=== PATIENT | female | born 1995 | race Caucasian/White ===

== ENCOUNTER 2021-09-22 10:02 | Outpatient (CLI) | payer BC, SELFPAY ==
[2021-09-22 10:25] VITALS: BP 108/60; PULSE 77
[2021-09-22 10:27] VITALS: BP 108/60; PULSE 77; RESP 16; TEMP 37.2; O2SAT 98
[2021-09-22 10:42] LABS: Bilirubin Urine Negative (Negative); Blood Urine Negative (Negative); Color Urine Yellow (Yellow); Glucose Urine Negative (Negative); Ketones Urine Negative (Negative); Leukocyte Esterase Urine Negative (Negative); Nitrite Urine Negative (Negative); Protein Urine Negative (Negative); Specific Gravity Urine 1.025 (1.000-1.030); Urobilinogen Urine 0.2 (0.2-1.0)
[2021-09-22 11:04] LABS: Appearance Urine Clear (Clear)
[2021-09-22] MEDS: LACTATED RINGERS 1000 ML 1,000 ML IV (11:13)
[2021-09-22 11:23] LABS: Clue Cells No Clue Cells Seen (None Seen); Trichomonas No Trichomonas Seen (None Seen); Yeast No Yeast Seen (None Seen)
--- NOTE | 2021-09-22 13:17 | PC.OBNST ---
The provider's electronic signature indicates the NST is reactive/appropriate for gestational age. *Note to provider: If an addendum is required, open the patient's chart and click on the note under the Nurse/Allied Health tab. Difficult to obtain a reactive and full NST tracing due to gestational age. Audible FHR heard in the high 140's and lower 150's. RN listened for 5 minutes with no audible decelerations heard. RN obtained order for a fluid bolus, wet prep & urinalyses. MD came to bedside for a vaginal speculum exam and ordered a vaginal DNA swab for BV or Vaginal yeast infection. Test was sent out for results.
[2021-10-17 21:05] LABS: Trich vaginalis DNA Probe NEGATIVE
== END 2021-09-22 13:15 | disposition home or self-care (01) ==
LOC: OB OUT 10:05 → OB 12:54
PROVIDERS: PCP Family Medicine; Visit Provider Family Medicine
DX: O47.02 False labor before 37 completed weeks of gestation, second trimester (principal); Z3A.21 21 weeks gestation of pregnancy; Z11.3 Encounter for screening for infections with a predominantly sexual mode of transmission
CPT/HCPCS: 59025; 81003; 87210; 87480; 87510; 87660; 99213; J7120

== ENCOUNTER 2021-11-26 11:20 | Outpatient (CLI) | payer BC, SELFPAY ==
[2021-11-26 12:07] VITALS: BP 117/69; PULSE 81
[2021-11-26 12:08] VITALS: RESP 16; TEMP 36.6
[2021-11-26 12:33] LABS: Appearance Urine Clear (Clear); Bilirubin Urine Negative (Negative); Blood Urine Negative (Negative); Color Urine Yellow (Yellow); Glucose Urine Negative (Negative); Ketones Urine Negative (Negative); Leukocyte Esterase Urine Negative (Negative); Nitrite Urine Negative (Negative); Protein Urine Negative (Negative); Specific Gravity Urine 1.015 (1.000-1.030); Urobilinogen Urine 0.2 (0.2-1.0); pH Urine 7.5 (5.0-8.5)
[2021-11-26 13:03] LABS: Clue Cells No Clue Cells Seen (None Seen); Trichomonas No Trichomonas Seen (None Seen); Yeast Yeast Seen (None Seen)
[2021-11-26 13:07] LABS: Amnisure Rom* Negative
[2021-11-26 13:24] LABS: Fetal Fibronectin* Negative (Negative)
--- NOTE | 2021-11-26 14:38 | PC.OBNST ---
NST Note NST Note Start: 11/26/21 11:57 Freq: ONCE Status: Active Protocol: Document 11/26/21 13:15 WK (Rec: 11/26/21 14:38 WK [id number]) NST Note 4 Para (# of births) 2 EDC 01/29/22 Gestational Age In Weeks & Days 30 Weeks & 6 Days Patient Presented with Complaint(s) of Contractions/cramping,Pain If Pain, describe location c/o pain on L side of uterus. Other Complaints Also c/o vaginal pressure. Appropriate for Gestational Age Yes RN Alberto RNC Date 11/26/21 Appropriate for Gestational Age Yes RN Bang RN Date 11/26/21 OB NST charge Yes Complete NST Note via Write Note Yes The provider's electronic signature indicates the NST is reactive/appropriate for gestational age. *Note to provider: If an addendum is required, open the patient's chart and click on the note under the Nurse/Allied Health tab.
== END 2021-11-26 13:35 | disposition home or self-care (01) ==
LOC: OB OUT 11:24 → OB 11:25
PROVIDERS: PCP Family Medicine; Visit Provider Family Medicine
DX: O47.03 False labor before 37 completed weeks of gestation, third trimester (principal); Z3A.30 30 weeks gestation of pregnancy
CPT/HCPCS: 59025; 81003; 84112; 87210; 99213

== ENCOUNTER 2021-12-29 14:20 | Outpatient (CLI) | payer BC, SELFPAY ==
[2021-12-29 14:56] VITALS: BP 129/66; PULSE 88; RESP 16; TEMP 36.9
[2021-12-29 15:10] LABS: Amnisure Rom* Negative
[2021-12-29 15:25] VITALS: PULSE 88; O2SAT 96
[2021-12-29 15:39] LABS: Appearance Urine Clear (Clear); Bilirubin Urine Negative (Negative); Blood Urine Negative (Negative); Color Urine Yellow (Yellow); Glucose Urine Negative (Negative); Ketones Urine Negative (Negative); Leukocyte Esterase Urine Negative (Negative); Nitrite Urine Negative (Negative); Protein Urine Negative (Negative); Urobilinogen Urine 0.2 (0.2-1.0)
--- NOTE | 2021-12-30 14:22 | PC.OBNST ---
NST Note NST Note Start: 12/29/21 1425 Freq: ONCE Status: Active Protocol: Document 12/29/21 16:10 CUDDYH (Rec: 12/30/21 13:49 CUDDY [id number]) NST Note 4 Para (# of births) 2 EDC 01/29/22 Gestational Age In Weeks & Days 35 Weeks & 5 Days Patient Presented with Complaint(s) of Leaking fluid Other Complaints Pt arrived to unit ambulatory from home with complaints of questionable rupture of membranes. Reactive Yes Appropriate for Gestational Age Yes LINDSEY Juarez RN Date 12/29/21 Reactive Yes Appropriate for Gestational Age Yes LINDSEY Mercedes RNC Date 12/29/21 OB NST charge Yes Complete NST Note via Write Note Yes The provider's electronic signature indicates the NST is reactive/appropriate for gestational age. *Note to provider: If an addendum is required, open the patient's chart and click on the note under the Nurse/Allied Health tab.
== END 2021-12-29 16:10 | disposition home or self-care (01) ==
LOC: OB OUT 14:21 → OB 14:24
PROVIDERS: PCP Family Medicine; Visit Provider Family Medicine
DX: O47.03 False labor before 37 completed weeks of gestation, third trimester (principal); Z3A.35 35 weeks gestation of pregnancy
CPT/HCPCS: 59025; 81003; 84112; 99213

== ENCOUNTER 2022-02-01 16:35 | Inpatient (IN) | payer BC, SELFPAY ==
[2022-02-01 17:09] VITALS: BP 128/73; PULSE 90
[2022-02-01 17:14] VITALS: PULSE 90; O2SAT 97
[2022-02-01 17:40] VITALS: BMI 33.7
[2022-02-01] MEDS: miSOPROStoL 25 MCG/0.25 TABLET PO ×2 (18:04→20:57)
[2022-02-01 18:17] LABS: SARS PCR* Negative SARS-CoV-2 (Negative)
[2022-02-01 18:44] LABS: Basophils Percent Auto 0.2 % (0.0-3.0); Eosinophils Percent Auto 0.8 % (0.0-7.0); Hematocrit 37.7 % (33.0-51.0); Hemoglobin* 12.9 gm/dL (12.0-16.0); Immature Granulocytes Pct Auto 0.2 %; Lymphocytes Percent Auto 17.9 % (20-44); Mean Corpuscular HGB Conc 34 gm/dL (32-36); Mean Corpuscular Hemoglobin 33 pg (26-34); Mean Corpuscular Volume 95 fL (80-100); Neutrophils Percent Auto 69.9 % (42.0-72.0); Platelet Count* 354 K/uL (140-440); Red Blood Count 3.96 m/uL (4.00-5.20); White Blood Count* 12.04 K/uL (4.50-11.00)
[2022-02-01 18:52] LABS: Slide Review Reflex No
[2022-02-01 21:17] VITALS: BP 122/66; PULSE 70
[2022-02-01 21:19] VITALS: RESP 16; TEMP 36.8
[2022-02-02] VITALS (53 sets, daily range): BP systolic 107–166; BP diastolic 51–76; PULSE 58–162; RESP 16–18; TEMP 36.2–36.9; O2SAT 96–99
[2022-02-02] MEDS: miSOPROStoL 25 MCG/0.25 TABLET PO ×2 (00:05→03:06)
[2022-02-02] MEDS: LACTATED RINGERS 1000 ML 1,000 ML 1200 ML IV (03:54)
--- NOTE | 2022-02-02 05:28 | P.ANBPRC_ITS ---
[facility] Social History Smoking Status: Current every day smoker Meds Home Medications and Allergies Home Medications Medication Instructions Recorded Confirmed Type vit 60-olqv-jzwla-dha 1 tab PO DAILY 11/26/21 02/01/22 History Allergies Allergy/AdvReac Type Severity Reaction Status Date / Time No Known Drug Allergies Allergy Verified 02/01/22 21:30 Results Labs Labs: Laboratory Results - last 24 hr 02/01/22 02/01/22 02/01/22 16:44 18:35 18:35 WBC 12.04 H RBC 3.96 L Hgb 12.9 Hct 37.7 MCV 95 MCH 33 MCHC 34 RDW Coeff of Suman 13.0 Plt Count 354 Neut % (Auto) 69.9 Lymph % (Auto) 17.9 L Anderson % (Auto) 11.0 Eos % (Auto) 0.8 Baso % (Auto) 0.2 Neut # (Auto) 8.40 H Lymph # (Auto) 2.20 Anderson # (Auto) 1.30 H Eos # (Auto) 0.10 Baso # (Auto) 0.00 SARS-CoV-2 (PCR) Negative SARS-CoV-2 Blood Type A Positive Antibody Screen NEGATIVE Vital Signs Vital Signs: Last Vital Signs Temp 98 F 02/02/22 03:05 Pulse 67 02/02/22 03:05 Resp 16 02/02/22 03:05 BP 114/64 02/02/22 03:05 Pulse Ox 97 02/02/22 03:50 Weight: 89.103 kg Height: 162.56 cm Anesthesia Procedures Epidural Insertion Patient Location: OB Start Time: 04:30 Stop Time: 05:30 Start Date: 02/02/22 Stop Date: 02/02/22 Reason for Block: procedure for pain Patient Position: sitting Performed By: Adam Jose Preanesthetic Checklist: IV checked, risks and benefits discussed, surgical consent, monitors and equipment checked, pre-op evaluation, timeout performed and anesthesia consent Prep: chlorhexidine gluconate Monitoring: blood pressure monitoring, continuous pulse oximetry and heart rate Approach: midline Vertebral Space: lumbar (1-5) Epidural Technique: WAYNE saline Needle Type: Tuohy needle Injection Technique: continuous catheter Needle gauge: 17 Needle Length (cm): 10 cm Needle Insertion Depth (cm): 9 Catheter Gauge: 19 Catheter Type: multi-orifice Catheter at skin depth (cm): 13 Test Dose Result: negative and lidocaine 1.5% with epinephrine 1 to 200,000
--- NOTE | 2022-02-02 06:22 | P.OBHP_ITS ---
OB - H&P: HPI Labor/Induction History of Present Illness Time Seen by Provider: 06: Date Seen: 02/02/22 Chief Complaint: The patient is a 26 year old 4 para 2011 at 40+4 weeks gestation by first trimester US, who presents for IOL for mild polyhydramnios and post-dates. Chief complaint: Maternity Narrative: Maday Sheppard is a 26 year old female 4 para 2011 at 40+4 weeks gestation by first trimester US, who presents for IOL for mild polyhydramnios and post-dates. Her has been complicated by tobacco dependence, short- interpregnancy interval, mild polyhydramnios. She had a level II ultrasound 09/29/21 with MPP and negative quad screen. Mild polyhydramnios on 34 week US; discussed with perinatology and no change in management recommended. EFW 40th percentile on 12/22/2021. GBS negative. I was called in to assess the patient following several decelerations. First was around 345, lasting 5 minutes. Several subsequent between 5 and 530. Following decelerations, returns to baseline with moderate variability. She is s/p doses of oral cytotec. Labs Blood type: A (+) positive Rubella: immune RPR/VDLR: nonreactive GBS status: negative HBsAG: negative Review of Systems Status of ROS: Reports: 10 or more systems reviewed and unremarkable except as noted in History and below Meds Home Medications and Allergies Home Medications Medication Instructions Recorded Confirmed Type vit 17-guco-gffco-dha 1 tab PO DAILY 11/26/21 02/01/22 History Allergies Allergy/AdvReac Type Severity Reaction Status Date / Time No Known Drug Allergies Allergy Verified 02/01/22 21:30 OB - H&P: Exam Physical Exam: Vital signs: Temp Pulse Resp BP Pulse Ox 98 F 61 16 113/58 L 96 02/02/22 05:40 02/02/22 05:32 02/02/22 05:40 02/02/22 05:32 02/02/22 06:19 Narrative: General appearance: Well-appearing adult female. Resting in bed. No acute distress. HEENT: Normocephalic, atraumatic. Mucous membranes moist. Neck: Supple. Cardiovascular: Regular rate and rhythm, no rubs, murmurs or extra heart sounds. Pulmonary: Clear to auscultation bilaterally. No wheezes, rales or rhonchi. Abdomen: Gravid. Soft, nontender Extremities: Warm and well perfused. No lower extremity edema. Skin: Warm and dry. No rashes appreciated Neuro: Cranial nerves 2-12 grossly intact. Grossly intact strength and sensation. No focal deficits. Psychiatric: Normal affect. Cervix: Per nursing 4-5 cm/50%/-3 FHT: 125 BPM, moderate variability, multiple prolonged decelerations OB - Results Labs Labs: Short CBC 02/01/22 Range/Units 18:35 WBC 12.04 H (4.50-11.00) K/uL Hgb 12.9 (12.0-16.0) gm/dL Hct 37.7 (33.0-51.0) % Plt Count 354 (140-440) K/uL OB - Problem Based A/P Additional Plan (1) Term : Status: Acute (2) Polyhydramnios: Status: Acute (3) Tobacco dependence: Status: Acute Plan - Currently status reassuring. Continue to monitor for additional decelerations - Start pitocin at 0715 - Epidural at request - Anticipate vaginal delivery
[2022-02-02] MEDS: OXYTOCIN 30 unit/500 ML in NS 30 UNIT/500 ML BAG IVPB (07:11)
[2022-02-02] MEDS: LACTATED RINGERS 1000 ML 1,000 ML 125 ML IV (07:26)
[2022-02-02] MEDS: fentaNYL 100 MCG/2 ML inj 25 MCG INTRATHECA (08:45)
--- NOTE | 2022-02-02 08:57 | PM.ANBPRC ---
[facility] Social History Smoking Status: Current every day smoker Meds Home Medications and Allergies Home Medications Medication Instructions Recorded Confirmed Type vit 05-helj-jyfyw-dha 1 tab PO DAILY 11/26/21 02/01/22 History Allergies Allergy/AdvReac Type Severity Reaction Status Date / Time No Known Drug Allergies Allergy Verified 02/01/22 21:30 Results Labs Labs: Laboratory Results - last 24 hr 02/01/22 02/01/22 02/01/22 16:44 18:35 18:35 WBC 12.04 H RBC 3.96 L Hgb 12.9 Hct 37.7 MCV 95 MCH 33 MCHC 34 RDW Coeff of Suman 13.0 Plt Count 354 Neut % (Auto) 69.9 Lymph % (Auto) 17.9 L Thayer % (Auto) 11.0 Eos % (Auto) 0.8 Baso % (Auto) 0.2 Neut # (Auto) 8.40 H Lymph # (Auto) 2.20 Thayer # (Auto) 1.30 H Eos # (Auto) 0.10 Baso # (Auto) 0.00 SARS-CoV-2 (PCR) Negative SARS-CoV-2 Blood Type A Positive Antibody Screen NEGATIVE Vital Signs Vital Signs: Last Vital Signs Temp 98.5 F 02/02/22 07:13 Pulse 97 02/02/22 08:55 Resp 16 02/02/22 07:13 BP 121/64 02/02/22 08:55 Pulse Ox 97 02/02/22 08:56 Weight: 89.103 kg Height: 162.56 cm Anesthesia Procedures Intrathecal Patient Location: OB Start Time: 08:40 Stop Time: 08:58 Start Date: 02/02/22 Stop Date: 02/02/22 Reason for Block: primary anesthetic Patient Position: sitting Performed By: Luis Carlos Tavera Preanesthetic Checklist: IV checked, risks and benefits discussed and anesthesia consent Prep: chlorhexidine gluconate Monitoring: blood pressure monitoring and continuous pulse oximetry Approach: midline Vertebral Space: lumbar (1-5) Needle Type: Sprotte Injection Technique: single-shot Needle gauge: 24 Needle Length (cm): 10 cm Events: cerebrospinal fluid
[2022-02-02] MEDS: OXYTOCIN 30 unit/500 ML in NS 30 UNIT/500 ML BAG 300 UNIT IVPB (09:09)
--- NOTE | 2022-02-02 09:13 | SUR.ANES ---
meds for ITN were 0.8 ml 0.75% Marcaine and 20 mcg Fentanyl. aryan BUTLER
[2022-02-02 09:17] LABS: HIV 1/2/P24 Combo Screen* Negative (Negative)
--- NOTE | 2022-02-02 09:24 | PM.OBPRCVD ---
Procedure Delivery date: 02/02/22 Procedure Done: Global Narrative: The patient is a 26 year-old admitted on 02/01/22/ at 40 Weeks, 3 Days gestation for IOL for mild polyhydramnios.? Cervical exam on admission was 3.5 cm/50 % effaced/-3 station with membranes intact in vertex presentation.? Contractions were q2-3 mins.? heart rate demonstrated baseline 125 bpm with moderate variability, + accelerations, - decelerations; a category 1 tracing.?She received oral cytotec x 4 doses. Several prolonged decelerations occurred in the early AM on 02/02 with subsequent return to baseline with good variability. Pitocin was stared 0715. AROM occurred at 0900 with clear fluid. ? Labor Analgesia:? ITN ? Pitocin:? Yes ? Labor onset:? 0344 ? Complete:? 903 ? Pushing:? 0907 ? heart tones during second stage were category II with early decelerations. ? At 0908 a viable male delivered in vertex OA presentation over intact via spontaneous vaginal delivery.? was placed on maternal abdomen.? Cord was clamped and cut after a 30-60 second delay.? Nose and mouth were bulb suctioned.? weight pending.? 8 at 1 minute and 9 at 5 minutes.? Shoulder dystocia: no.? Nuchal cord: yes, reduced. ? Placenta delivered spontaneously and complete at 0912 with a 3 vessel cord. ? Mother and were stable after delivery. ? Lacerations:? first degree periurethral, not repaired. ? Blood loss: 350 mL. Blood loss measurement type: QBL ? Sponge and needles counts are correct.
[2022-02-02] MEDS: IBUPROFEN 600 MG TABLET PO ×2 (16:39→22:47)
[2022-02-02] MEDS: ACETAMINOPHEN 500 MG TABLET 1000 MG PO (22:47)
[2022-02-03 04:00] VITALS: BP 120/77; PULSE 77; RESP 18; TEMP 36.6; O2SAT 96
[2022-02-03] MEDS: IBUPROFEN 600 MG TABLET PO (04:50)
[2022-02-03] MEDS: DOCUSATE SODIUM 100 MG CAPSULE PO ×2 (09:03)
[2022-02-03] MEDS: ACETAMINOPHEN 500 MG TABLET 1000 MG PO (09:03)
[2022-02-03 09:30] VITALS: BP 126/77; PULSE 78; RESP 18; TEMP 36.6; O2SAT 96
--- NOTE | 2022-02-03 10:07 | P.DS_ITS ---
DS: Providers Provider Time Seen by Provider: 10:07 Date Seen: 02/03/22 Date of admission: 02/01/22 16:35 Primary care physician: Alfreda Avila MD Admitting Clinician: Alfreda Aivla MD Attending Physician on discharge: Alfreda Avila MD Date of Discharge: 02/03/22 DS: Diagnosis Discharge Diagnosis (1) Term : Status: Acute (2) Polyhydramnios: Status: Acute (3) Tobacco dependence: Status: Acute (4) (normal spontaneous vaginal delivery): Status: Acute Exam Narrative: Exam Narrative: General appearance: Well-appearing adult female. Sitting up in bed. No acute distress. HEENT: EOMI, no conjunctival injection. No nasal discharge. Mucous membranes moist. Neck: Supple. Cardiovascular: Regular rate and rhythm, no rubs, murmurs or extra heart sounds. Pulmonary: Clear to auscultation bilaterally. No wheezes, rales or rhonchi. Abdomen: Soft, nontender, nondistended. Fundus at the level the umbilicus, firm. Extremities: Warm and well perfused. No lower extremity edema. Skin: Warm and dry. No rashes are appreciated on exposed skin. Neuro: Cranial nerves 2-12 grossly intact. Strength and sensation grossly intact. No focal deficits. Psych: Appropriate affect. Const: Vital Signs, click to edit/add: Vital Signs - 24 hr 02/02/22 10:14 02/02/22 10:28 02/02/22 10:43 Temperature Pulse Rate 67 60 59 L Pulse Rate [Blood Pressure Cuff] Respiratory Rate Blood Pressure 125/56 L 116/59 L 114/58 L Blood Pressure [Ri ght Arm] Pulse Oximetry Oxygen Delivery Fl thod 02/02/22 10:58 02/02/22 10:43 02/02/22 10:14 Temperature Pulse Rate 61 Pulse Rate [Blood Pressure Cuff] 78 67 Respiratory Rate Blood Pressure 107/55 L Blood Pressure [Ri ght Arm] 117/54 L 125/56 L Pulse Oximetry Oxygen Delivery Fl thod 02/02/22 10:28 02/02/22 10:43 02/02/22 10:58 Temperature Pulse Rate Pulse Rate [Blood Pressure Cuff] 60 59 L 61 Respiratory Rate Blood Pressure Blood Pressure [Ri ght Arm] 116/59 L 114/58 L 107/55 L Pulse Oximetry Oxygen Delivery Me thod 02/02/22 12:19 02/02/22 16:31 02/02/22 16:39 Temperature 97.4 F L 97.6 F 97.6 F Pulse Rate Pulse Rate [Blood Pressure Cuff] 81 74 Respiratory Rate 16 16 Blood Pressure Blood Pressure [Ri ght Arm] 115/74 123/73 Pulse Oximetry 96 Oxygen Delivery Me thod Room Air 02/02/22 20:05 02/02/22 23:30 02/03/22 04:00 Temperature 97.2 F L 97.9 F 98 F Pulse Rate Pulse Rate [Blood Pressure Cuff] 70 60 77 Respiratory Rate 16 18 18 Blood Pressure Blood Pressure [Ri ght Arm] 119/71 130/76 120/77 Pulse Oximetry 96 97 96 Oxygen Delivery Me thod Room Air Room Air Room Air OB - DS: Summary Hospital Course Hospital Course: The patient is a 26 year old G 4 P 2 at 40+3 weeks gestation that was admitted to the Center on 02/01/22 for IOL for mild polyhydramnios. She had an uncomplicated vaginal delivery. She delivered a viable male infant. She is breast feeding. the patient has done well. Peripartum Data delivery method: Vaginal Laceration description: Periurethral - 1st Degree (Not repaired.) complications: none [place] Infant Gender: Male Time Spent with Patient Time attestation: Total time spent providing and/or coordinating discharge services: Discharge Plan Discharge Disposition: Home, Self-Care Date of Admission: 02/01/22 16:35 Attending Provider on Discharge: Alfreda Avila Primary Care Provider: Alfreda Avila I Condition: Stable Anticipated Discharge Date/Time: 02/03/22 10:03 Discharge Medications: New acetaminophen 500 mg Tablet 1,000 mg PO Q6H PRN30 Days Qty: 30 0RF docusate sodium 100 mg Capsule 100 mg PO DAILY 30 Days Qty: 30 0RF ibuprofen 600 mg Tablet 600 mg PO Q6H PRN30 Days Qty: 30 0RF Continued vit 19-ufmo-psljt-dha 1 tab PO DAILY Discharge Orders: Discharge Order (Routine); Ordered 02/03/22 Ordered By: Alfreda Avila Patient Education: OB Vaginal/Breast Feeding Activity Level: Activity as Tolerated Discharge Diet: Regular Follow Up Appointments: Alfreda Avila MD [Primary Care Provider] - (6 weeks post- with Dr. Avila at [facility]) Forms: [employer] Info Instructions
== END 2022-02-03 12:50 | disposition home or self-care (01) | DRG 560 ==
PROVIDERS: Admitting Provider Family Medicine; PCP Family Medicine; Visit Provider Family Medicine
DX: O48.0 Post-term pregnancy (principal); O76 Abnormality in fetal heart rate and rhythm complicating labor and delivery; O71.82 Other specified trauma to perineum and vulva; O40.3XX0 Polyhydramnios, third trimester, not applicable or unspecified; O99.334 Smoking (tobacco) complicating childbirth; F17.210 Nicotine dependence, cigarettes, uncomplicated; Z3A.40 40 weeks gestation of pregnancy; Z37.0 Single live birth
CPT/HCPCS: 01967; 36415; 59200; 85018; 85025; 86703; 86850; 86900; 86901; 87635; A9270; J3010; J7120